=== PATIENT | female | born 1945 | race Caucasian/White ===

== ENCOUNTER 2016-10-05 16:09 | Emergency (ER) | payer MEDICARE ==
[2016-10-05 16:56] LABS: Anisocytosis Moderate; Basophils # (A) 0.1 k/uL (0-0.2); Basophils % (A) 1 %; Eosinophils % (A) 1 %; HCT 22.5 % (34.0-46.0); HGB 7.2 gm/dL (11.4-16.0); Luc # (Auto) 0.07; Luc % (Auto) 2; Lymphocytes # (A) 0.7 k/uL (1.0-4.8); Lymphocytes % (A) 21 %; MCH 27.2 pg (25.0-35.0); MCHC 32.1 g/dL (31.0-37.0); MCV 84.9 fL (80.0-100.0); Macrocytosis Slight; Mean Platelet Volume 9.4; Microcytosis Slight; Monocytes # (A) 0.1 k/uL (0-1.0); Monocytes % (A) 2 %; Neutrophils # (A) 2.5 k/uL (1.3-7.7); Neutrophils % (A) 73 %; RBC 2.65 m/uL (3.80-5.40); RDW 23.8 % (11.5-15.5); WBC 3.4 k/uL (3.8-10.6); WBC (Perox) 3.25
[2016-10-05 17:10] LABS: ALT 29 U/L (9-52); AST 27 U/L (14-36); Alkaline Phosphatase 119 U/L (38-126); Anion Gap 16 mmol/L; Blood Urea Nitrogen 26 mg/dL (7-17); Calcium 9.4 mg/dL (8.4-10.2); Carbon Dioxide 17 mmol/L (22-30); Chloride 107 mmol/L (98-107); Glucose 119 mg/dL (74-99); Magnesium 1.7 mg/dL (1.6-2.3); Non-African American GFR(MDRD) >60 (>60 ml/min/1.73 sqM); Potassium 4.3 mmol/L (3.5-5.1); Sodium 140 mmol/L (137-145); Total Bilirubin 0.5 mg/dL (0.2-1.3); Total Protein 7.6 g/dL (6.3-8.2)
[2016-10-05 17:18] LABS: Creatine Kinase 52 U/L (30-135)
--- NOTE | 2016-10-05 17:19 | ED ---
Chest Pain HPI - General Chief Complaint: Chest Pain Stated Complaint: blood transfusion Time Seen by Provider: 10/05/16 16:32 Source: patient, RN notes reviewed Mode of arrival: wheelchair Limitations: no limitations - History of Present Illness Initial Comments: This is a 71-year-old female history of breast cancer and anemia who was sent over here from her oncologist office due to a low hemoglobin was found on lab work today when she was supposed to start her next round of chemotherapy last chemotherapy was about 6 days ago. She also complains some anterior chest pain that sharp. Denies any fevers chills sweats cough or other symptoms. She denies any lightheadedness or dizziness. MD Complaint: chest pain, other - Related Data Home Medications Medication Instructions Recorded Confirmed Albuterol Sulfate [Proair Hfa] 1 - 2 puff INHALATION RT-Q6H PRN 05/25/16 Gemfibrozil [Lopid] 600 mg PO AC-BID 05/25/16 10/05/16 Hydrocodone/Acetaminophen [[place] 1 tab PO Q6HR PRN 05/25/16 10/05/16 7.5-325] Levothyroxine Sodium [Synthroid] 112 mcg PO DAILY 05/25/16 10/05/16 Omeprazole 20 mg PO DAILY 05/25/16 10/05/16 Vit A,C & E/Lutein/Minerals 1 tab PO BID 06/28/16 10/05/16 [Ocuvite with Lutein Tablet] Cholecalciferol [Vitamin D3] 5,000 unit PO DAILY 10/05/16 10/05/16 Ipratropium-Albuterol Nebulize 3 ml INHALATION RT-QID PRN 10/05/16 10/05/16 [Duoneb 0.5 mg-3 mg/3 ml Soln] Previous Rx's Medication Instructions Recorded Metoprolol Tartrate [Lopressor] 25 mg PO BID #60 tab 07/10/16 Allergies Allergy/AdvReac Type Severity Reaction Status Date / Time aspirin Allergy Rash/Hives Verified 10/05/16 17:02 Review of Systems ROS Statement: Those systems with pertinent positive or pertinent negative responses have been documented in the HPI. ROS Other: All systems not noted in ROS Statement are negative. EKG Findings - EKG Results: EKG: interpreted by CHRIS, WNL, sinus rhythm, normal axis, normal QRS, normal ST/ T, no acute changes (EKG shows normal sinus rhythm of 94. Ago 148 QRS duration 74 daily since QTC of 360/450 qt wave changes.) Past Medical History Past Medical History: Cancer, Eye Disorder, GERD/Reflux, GI Bleed, Hyperlipidemia, Osteoarthritis (OA), Respiratory Disorder, Thyroid Disorder Additional Past Medical History / Comment(s): CA LT BREAST 1997. EXC THYROID 2005. SHORTNESS OF BREATH AND COUGH SINCE 04/30/16. History of Any Multi-Drug Resistant Organisms: None Reported Past Surgical History: Breast Surgery Additional Past Surgical History / Comment(s): LEFT MASTECTOMY AND 12 NODES 1997. THYROID REMOVED. BRONCH 05/25/16. Past Anesthesia/Blood Transfusion Reactions: No Reported Reaction Past Psychological History: No Psychological Hx Reported Smoking Status: Former smoker Past Alcohol Use History: Rare Additional Past Alcohol Use History / Comment(s): SMOKED 30 YEARS, 1 PPD OR LESS , QUIT 2007 Past Drug Use History: None Reported - Past Family History Brother(s) Family Medical History: Cancer Additional Family Medical History / Comment(s): EXPOSURE TO AGENT ORANGE. Mother Family Medical History: Congestive Heart Failure (CHF) Additional Family Medical History / Comment(s): unknown cause at 52 General Exam - General Exam Comments Initial Comments: This a well-developed well-nourished awake alert oriented 3 female Limitations: no limitations General appearance: alert, in no apparent distress Head exam: Present: atraumatic, normocephalic, normal inspection Eye exam: Present: PERRL, EOMI, other (Pale conjunctiva) Pupils: Present: normal accommodation ENT exam: Present: normal exam, mucous membranes moist Neck exam: Present: normal inspection. Absent: tenderness, meningismus, lymphadenopathy Respiratory exam: Present: chest wall tenderness, decreased breath sounds Cardiovascular Exam: Present: regular rate, normal rhythm, normal heart sounds. Absent: systolic murmur, diastolic murmur, rubs, gallop, clicks GI/Abdominal exam: Present: soft, normal bowel sounds. Absent: distended, tenderness, guarding, rebound, rigid Extremities exam: Present: normal inspection, full ROM, normal capillary refill. Absent: tenderness, pedal edema, joint swelling, calf tenderness Back exam: Present: normal inspection Neurological exam: Present: alert, oriented X3, CN II-XII intact Psychiatric exam: Present: normal affect, normal mood Skin exam: Present: warm, dry, intact, pallor. Absent: rash Course Vital Signs 10/05/16 10/05/16 10/05/16 16:19 17:43 18:21 Temperature 98.0 F 98.0 F Pulse Rate 94 93 99 Respiratory 20 18 18 Rate Blood Pressure 132/75 137/63 129/91 O2 Sat by Pulse 100 100 100 Oximetry 10/05/16 10/05/16 10/05/16 18:28 18:38 19:08 Temperature 97.8 F 98.1 F 97.3 F L Pulse Rate 98 96 102 H Respiratory 18 18 18 Rate Blood Pressure 133/93 135/62 140/63 O2 Sat by Pulse 99 100 Oximetry Chest Pain MDM - MDM The patient did receive 1 unit of packed red blood cells he feels good and will be discharged. No complaints at this time. Disposition Clinical Impression: Anemia, Chest wall syndrome Disposition: HOME SELF-CARE Condition: Good Instructions: Costochondritis (ED), Anemia (ED)
[2016-10-05 17:31] LABS: Creatine Kinase MB 1.1 ng/mL (0.0-2.4); Troponin I <0.012 ng/mL (0.000-0.034)
[2016-10-05 17:55] VITALS: RESP 18
[2016-10-05 21:00] VITALS: BP 149/69; PULSE 96; TEMP 97.4
== END 2016-10-05 21:06 | disposition home or self-care (01) ==
LOC: EC 16:09
DX: D64.9 Anemia, unspecified (principal); R07.1 Chest pain on breathing; C50.919 Malignant neoplasm of unspecified site of unspecified female breast; E78.5 Hyperlipidemia, unspecified; Z79.899 Other long term (current) drug therapy; E07.9 Disorder of thyroid, unspecified; K21.9 Gastro-esophageal reflux disease without esophagitis; Z88.6 Allergy status to analgesic agent; Z87.891 Personal history of nicotine dependence
CPT/HCPCS: 36415; 93005; 86900; 86901; 80053; 82550; 82553; 83735; 84484; 85025; 86850; 86920; 99285; P9016; 36430

== ENCOUNTER → 2016-11-29 | Outpatient (CLI) | payer MEDICARE ==
[2016-11-29 12:48] LABS: Blood Urea Nitrogen 33 mg/dL (7-17); Non-African American GFR(MDRD) 53 (>60 ml/min/1.73 sqM)
--- NOTE | 2016-11-29 14:42 | CT ---
EXAMINATION TYPE: CT chest w con DATE OF EXAM: 11/29/2016 2:13 PM COMPARISON: Chest CT April 30, 2016. Chest x-rays from July 2016. HISTORY: Left-sided lung cancer progress study CT DLP: 255.90 mGycm. Automated Exposure Control for Dose Reduction was Utilized. TECHNIQUE: CT scan of the thorax is performed following with IV Contrast, patient injected with 100 ml mL of Omnipaque 300. FINDINGS: LUNGS: There is interval partial pneumonectomy in left lung from prior CT. There is a small left basi lar pneumothorax estimated approximately 20%. There is small to tiny left pleural fluid component. Up rgical clips left hilar level are present. There is new mediastinal shift to the left consistent with interval partial pneumonectomy. Residual lungs show mild to moderate emphysematous change. There is moderate right apical scarring redemonstrated. No new concerning parenchymal nodule or mass is presen t. Tracheobronchial tree is patent. MEDIASTINUM: There are no greater than 1 cm new hilar or mediastinal lymph nodes. No cardiomegaly o r pericardial effusion is seen. Coronary artery calcification is present. OTHER: Underlying S-shaped scoliosis is present. Left-sided mastectomy changes are redemonstrated. Vi sualized spleen remains prominent similar to prior. IMPRESSION: 1. Interval successful surgical resection of left lung mass. No suspicious new nodule or adenopathy i s seen to suggest neoplastic recurrence. 2. There is small to moderate size left basilar hydropneumothorax, after surgery patient had pneumoth orax with chest tube placement. No prior studies after July 10 are available to assess if there i s interval change. Interval resolution of subcutaneous emphysema noted. 3. Background mild to moderate emphysematous change of lungs without acute infiltrate. Results communicated to ordering physician office physician nurses medical assistants phlebotomists via telephone at time of dictat ion. A Document Only message has been documented for Kendall Pedroza MD in the [employer] Critical Result system on 11/29/2016 2:39 PM, Message ID [id number].
== END | disposition home or self-care (01) ==
LOC: RADCTMAIN 12:08
PROVIDERS: ATTEND Internal Medicine Sleep Medicine
DX: T79.7XXA Traumatic subcutaneous emphysema, initial encounter (principal); J93.83 Other pneumothorax; C34.90 Malignant neoplasm of unspecified part of unspecified bronchus or lung; Z98.890 Other specified postprocedural states
CPT/HCPCS: 82565; 84520; 71260; 36415; Q9967

== ENCOUNTER → 2017-03-18 | Outpatient (CLI) | payer MEDICARE ==
[2017-03-18 10:27] LABS: Blood Urea Nitrogen 21 mg/dL (7-17); Non-African American GFR(MDRD) >60 (>60 ml/min/1.73 sqM)
--- NOTE | 2017-03-18 11:21 | CT ---
EXAMINATION TYPE: CT chest w con DATE OF EXAM: 03/18/2017 COMPARISON: 11/29/2016 HISTORY: Lung CA CT DLP: 502 mGycm, Automated exposure control for dose reduction was used. CONTRAST: Performed injected with 100 mL of Omnipaque 300. TECHNIQUE: Axial images were obtained at 5 mm thick sections. Reconstructed images are reviewed on [employer] computer in the coronal plane. FINDINGS: Limited Portion of the thyroid visualized is normal. Left mastectomy is performed. Prosthes is is present. There is a chronic left basilar pneumothorax present and stable from comparison. No suspicious lung n odules or focal infiltrates are present. Some scarring or suture may be along the medial left lower l obe. No enlarged mediastinal or hilar adenopathy is evident. The ascending aorta diameter at the level o f the main pulmonary artery is 2.6 cm. The main pulmonary artery diameter at the bifurcation is 2.[address] sections are obtained through the upper abdomen. Abdomen is essentially unremarkable. IMPRESSIONS: 1. Stable loculated left basilar pneumothorax. 2. No suspicious recurrent masses identified.
== END ==
LOC: RADCTMAIN 09:23
PROVIDERS: ATTEND Internal Medicine Hematology & Oncology
DX: C34.12 Malignant neoplasm of upper lobe, left bronchus or lung (principal); J93.9 Pneumothorax, unspecified
CPT/HCPCS: 82565; 84520; 71260; 36415; Q9967

== ENCOUNTER → 2017-09-12 | Outpatient (CLI) | payer MEDICARE ==
[2017-09-12 10:24] LABS: Blood Urea Nitrogen 27 mg/dL (7-17)
--- NOTE | 2017-09-12 14:49 | CT ---
EXAMINATION TYPE: CT chest w con DATE OF EXAM: 09/12/2017 COMPARISON: 03/18/2017 HISTORY: Patient has no complaints at time of study. Follow up study for known lung CA. CT DLP: 204.4 mGycm, Automated exposure control for dose reduction was used. CONTRAST: Performed injected with 100 mL of Omnipaque 300. TECHNIQUE: Axial images were obtained at 5 mm thick sections. Reconstructed images are reviewed on [employer] computer in the coronal plane. FINDINGS: Portion of the thyroid visualized is normal. No suspicious lung nodules or focal infiltrates are present. Some minimal left pleural effusion is pr esent. Left lobectomy has been performed. There is shift of the mediastinum to the left. Scoliosis is present. No enlarged mediastinal or hilar adenopathy is evident. The ascending aorta diameter at the level o f the main pulmonary artery is 2.8 cm. The main pulmonary artery diameter at the bifurcation is 2.[address] sections are obtained through the upper abdomen. Abdomen is essentially unremarkable. IMPRESSIONS: 1. Stable postsurgical left chest. Previous pneumothorax has resolved. Minimal fluid remains present.
== END | disposition home or self-care (01) ==
LOC: RADCTMAIN 09:44
PROVIDERS: ATTEND Internal Medicine Hematology & Oncology
DX: C34.12 Malignant neoplasm of upper lobe, left bronchus or lung (principal); C50.919 Malignant neoplasm of unspecified site of unspecified female breast; J90 Pleural effusion, not elsewhere classified; Z88.6 Allergy status to analgesic agent; Z98.890 Other specified postprocedural states
CPT/HCPCS: 82565; 84520; 71260; 36415; Q9967

== ENCOUNTER → 2018-03-13 | Outpatient (CLI) | payer MEDICARE ==
--- NOTE | 2018-03-13 16:09 | CT ---
EXAMINATION TYPE: CT chest w con DATE OF EXAM: 03/13/2018 COMPARISON: 09/12/2017 HISTORY: Follow up Lung cancer per patient. Also history of breast cancer. CT DLP: 402 mGycm Automated exposure control for dose reduction was used. CONTRAST: CT scan of the chest is performed with IV Contrast, patient injected with 100 mL of Isovue 300. FINDINGS: LUNGS: Partial pulmonary lobectomy change of the left lung is stable. Pleural-based granulomas left u pper lobe. Persistent left lower lobe pleural thickening. No significant change seen. No evidence for local recurrence or metastatic disease within the [id number]. Hyperinflation compatible with COPD . Upper lobe emphysematous change mild in degree. MEDIASTINUM: There are no greater than 1 cm hilar or mediastinal lymph nodes. No pericardial effusi on is seen. Thoracic aorta is of normal caliber. The heart is not enlarged. UPPER ABDOMEN: No significant abnormality appreciated. OTHER: Left-sided mastectomy changes present. Left renal cyst noted. IMPRESSION: 1. Stable postsurgical left chest. No evidence for local recurrence or metastatic disease.
== END | disposition home or self-care (01) ==
LOC: RADCTMAIN 08:11
PROVIDERS: ATTEND Internal Medicine Hematology & Oncology
DX: C34.12 Malignant neoplasm of upper lobe, left bronchus or lung (principal); Z98.890 Other specified postprocedural states; Z88.6 Allergy status to analgesic agent
CPT/HCPCS: 82565; 84520; 71260; 36415; Q9967

== ENCOUNTER → 2018-07-19 | Outpatient (CLI) | payer MEDICARE ==
--- NOTE | 2018-08-03 13:16 | MM ---
Reason for exam: additional evaluation requested from prior study. Last mammogram was performed 1 year ago. History: Patient is postmenopausal, has history of other cancer at age 71, and has history of breast cancer at age 53. Family history of breast cancer in 2 maternal aunts and breast cancer in 2 maternal cousins. Benign right mammotome panel of the right breast, June 04, 2011. Malignant excisional biopsy of the left breast, May 01, 1998. Mastectomy of the left breast, 1997. Cyst aspiration of the left breast. Chemotherapy. Took hormonal contraceptives for 2 years beginning at age 20. Physical Findings: Nurse did not find any significant physical abnormalities on exam. MG 3D Diag Mammo W/Cad RT CC and MLO view(s) were taken of the right breast. Prior study comparison: July 07, 2017, right breast MG 3d diag mammo w/cad RT. May 26, 2015, right breast MG 3d diag mammo w/cad RT. The breast tissue is heterogeneously dense. This may lower the sensitivity of mammography. There are benign appearing round calcifications in the right breast. Previous mammotome biopsy in the right breast. There is no discrete abnormality. These results were verbally communicated with the patient and result sheet given to the patient on 07/19/18. ASSESSMENT: Benign, BI-RAD 2 RECOMMENDATION: Follow-up diagnostic mammogram of the right breast in 1 year.
== END | disposition home or self-care (01) ==
LOC: RADMAMWWP 09:59
PROVIDERS: ATTEND Family Medicine
DX: Z08 Encounter for follow-up examination after completed treatment for malignant neoplasm (principal); Z85.3 Personal history of malignant neoplasm of breast; Z90.12 Acquired absence of left breast and nipple
CPT/HCPCS: 77065; G0279; 77061

== ENCOUNTER → 2018-10-02 | Outpatient (CLI) | payer MEDICARE ==
[2018-10-02 11:27] LABS: Blood Urea Nitrogen 24 mg/dL (7-17)
--- NOTE | 2018-10-02 12:26 | CT ---
EXAMINATION TYPE: CT chest w con DATE OF EXAM: 10/02/2018 COMPARISON: Prior chest x-ray 03/13/2018 HISTORY: Lung cancer CT DLP: 240.3 mGycm Automated exposure control for dose reduction was used. CONTRAST: CT scan of the chest is performed with IV Contrast, patient injected with 100 mL of Isovue 300. FINDINGS: LUNGS: Line loss in the left hemithorax is again noted, there is pleural thickening as on prior exam. Emphysematous changes are present within the lungs. There is no pleural effusion or pneumothorax see n. The tracheobronchial tree is patent. MEDIASTINUM: There are no greater than 1 cm hilar or mediastinal lymph nodes. No pericardial effusi on is seen. AORTA: No additional significant abnormality is seen. OTHER: Cortical cysts associated with the anterior aspect of the left kidney measures 2.8 cm. There is a hiatal hernia as on prior. There is a spinal curvature present. IMPRESSION: Posttreatment changes. Additional findings above.
== END ==
LOC: RADCTMAIN 10:58
PROVIDERS: ATTEND Internal Medicine Hematology & Oncology
DX: C50.919 Malignant neoplasm of unspecified site of unspecified female breast (principal); C34.12 Malignant neoplasm of upper lobe, left bronchus or lung; Z98.890 Other specified postprocedural states; Z88.6 Allergy status to analgesic agent
CPT/HCPCS: 82565; 84520; 71260; 36415; Q9967

== ENCOUNTER → 2019-04-03 | Outpatient (CLI) | payer MEDICARE ==
--- NOTE | 2019-04-03 14:25 | CT ---
EXAMINATION TYPE: CT chest w con DATE OF EXAM: 04/03/2019 COMPARISON: 10/02/2018 an 03/13/2018 HISTORY: 74 year-old female follow-up Lung CA TECHNIQUE: Contiguous axial scanning of the chest after the administration of 100 mL of Isovue 300. Coronal/sagittal reconstructions performed. CT DLP: 229.2mGycm. Automatic exposure control utilized for a dose reduction. FINDINGS: Heart normal size without pericardial effusion. Aorta normal caliber with conventional branching anatomy. Mild atherosclerotic arch calcifications. No thoracic lymphadenopathy by CT size criteria. Prior left mastectomy. Volume loss within left hemithorax with prior left-sided lobectomy. Surgical material along the poste romedial aspect of the mid to lower left lung with stable adjacent pleural thickening. Some strandy s carring or atelectasis at the left base. Underlying mild centrilobular emphysema upper and mid lungs. No consolidation or pleural effusion. Small hiatal hernia. Stable left renal cyst measuring 2.7 cm. Bones: Dextroconvex curvature of the thoracic spine with moderate degenerative disc disease midthorac ic spine. No osseous destructive process. IMPRESSION: 1. COPD with mild emphysema. 2. Status post left lobectomy with postsurgical volume loss. 3. No suspicious nodule or lymphadenopathy to suggest metastatic disease.
== END | disposition home or self-care (01) ==
LOC: RADCTMAIN 09:15
PROVIDERS: ATTEND Internal Medicine Hematology & Oncology
DX: J44.9 Chronic obstructive pulmonary disease, unspecified (principal); C34.12 Malignant neoplasm of upper lobe, left bronchus or lung; C50.919 Malignant neoplasm of unspecified site of unspecified female breast; Z90.2 Acquired absence of lung [part of]
CPT/HCPCS: 36415; 71260; 82565; 84520

== ENCOUNTER → 2019-08-13 | Outpatient (CLI) | payer MEDICARE ==
--- NOTE | 2019-08-13 10:01 | MM ---
Reason for exam: additional evaluation requested from prior study. Last mammogram was performed 1 year and 1 month ago. History: Patient is postmenopausal, has history of other cancer at age 71, and has history of breast cancer at age 53. Family history of breast cancer in 2 maternal aunts and breast cancer in 2 maternal cousins. Benign right mammotome panel of the right breast, June 04, 2011. Malignant excisional biopsy of the left breast, May 01, 1998. Mastectomy of the left breast, 1997. Cyst aspiration of the left breast. Chemotherapy. Took hormonal contraceptives for 2 years beginning at age 20. Physical Findings: Nurse did not find any significant physical abnormalities on exam. MG 3D Diag Mammo W/Cad RT CC and MLO view(s) were taken of the right breast. Prior study comparison: July 19, 2018, right breast MG 3d diag mammo w/cad RT. July 07, 2017, right breast MG 3d diag mammo w/cad RT. The breast tissue is heterogeneously dense. This may lower the sensitivity of mammography. No suspicious abnormality. Right biopsy marker noted. These results were verbally communicated with the patient and result sheet given to the patient on 08/13/19. ASSESSMENT: Negative, BI-RAD 1 RECOMMENDATION: Routine screening mammogram of the right breast in 1 year.
== END | disposition home or self-care (01) ==
LOC: RADMAMWWP 08:55
PROVIDERS: ATTEND Internal Medicine Geriatric Medicine
DX: Z08 Encounter for follow-up examination after completed treatment for malignant neoplasm (principal); Z85.3 Personal history of malignant neoplasm of breast
CPT/HCPCS: 77065; G0279; 77061

== ENCOUNTER → 2019-10-08 | Outpatient (CLI) | payer MEDICARE ==
[2019-10-08 10:18] LABS: African American GFR (CKD) >90 (>60 ml/min/1.73 sqM); Blood Urea Nitrogen 18 mg/dL (7-17); Non-African American GFR(CKD) 89 (>60 ml/min/1.73 sqM)
--- NOTE | 2019-10-08 11:18 | CT ---
EXAMINATION TYPE: CT chest w con DATE OF EXAM: 10/08/2019 COMPARISON: 04/03/2019, 03/13/2018, 03/18/2017 HISTORY: 74-year-old female follow up lung cancer TECHNIQUE: Contiguous axial scanning of the chest after the administration of 100 mL of Isovue 300. Coronal/sagittal reconstructions performed. CT DLP: 235.1mGycm. Automatic exposure control utilized for a dose reduction. FINDINGS: Heart normal size without pericardial effusion. Aorta normal caliber with mild atherosclerotic arterial calcifications in the chart. Branching anatom y. Redemonstrated shift of the heart and mediastinum toward the left secondary to volume loss in the lef t hemithorax from prior left lobectomy. Surgical material along the posteromedial right upper lung. Biapical pleural parenchymal scarring. Scattered mild to moderate emphysematous change. No thoracic lymphadenopathy. Chronic pleural-based thickening posterior left mid and lower lung. No new consolidation or pleural effusion. Small hiatal hernia redemonstrated. Visualized upper abdomen again shows a 2.7 cm anterior left renal cyst. Mild to moderate atherosclerotic calcifications visualized upper abdominal aorta. Bones: Moderate degenerative disc disease midthoracic spine. Dextro convex scoliosis. IMPRESSION: 1. Redemonstrated postsurgical changes of left lobectomy with associated volume loss in the left noris thorax. 2. COPD with mild to moderate emphysema and biapical pleural parenchymal scarring. Chronic pleural th ickening posterior aspect of the left lung. 3. No evidence for recurrent or metastatic disease in the chest. 4. Small hiatal hernia.
== END | disposition home or self-care (01) ==
LOC: RADCTMAIN 09:26
PROVIDERS: ATTEND Internal Medicine Hematology & Oncology
DX: J43.9 Emphysema, unspecified (principal); J98.4 Other disorders of lung; C50.919 Malignant neoplasm of unspecified site of unspecified female breast; C34.12 Malignant neoplasm of upper lobe, left bronchus or lung; Z90.2 Acquired absence of lung [part of]; Z88.8 Allergy status to other drugs, medicaments and biological substances
CPT/HCPCS: 82565; 84520; 71260; 36415; Q9967

== ENCOUNTER → 2020-04-09 | Outpatient (CLI) | payer MEDICARE ==
--- NOTE | 2020-04-09 11:13 | CT ---
EXAMINATION TYPE: CT chest w con DATE OF EXAM: 04/09/2020 COMPARISON: 10/08/2019 HISTORY: Observation for suspected mets, known Lung and Breast CA CT DLP: 360 mGycm Automated exposure control for dose reduction was used. CONTRAST: CT scan of the chest is performed with IV Contrast, patient injected with 100 mL of Isovue 300. FINDINGS: Heart normal size without pericardial effusion. Aorta normal caliber with mild atherosclerotic arterial calcifications in the chart. Branching anatom y. Redemonstrated shift of the heart and mediastinum toward the left secondary to volume loss in the lef t hemithorax from prior left lobectomy. Surgical material along the posteromedial right upper lung. Biapical pleural parenchymal scarring. Scattered mild to moderate emphysematous change. No thoracic l ymphadenopathy. Chronic pleural-based thickening posterior left mid and lower lung. No new consolidat ion or pleural effusion. Coronary artery calcification noted. Small hiatal hernia redemonstrated. Visualized upper abdomen again shows a 2.7 cm anterior left renal cyst. Mild to moderate atherosclerotic calcifications visualized upper abdominal aorta. Bones: Moderate degenerative disc disease midthoracic spine. Dextro convex scoliosis. IMPRESSION: 1. Postsurgical changes with findings compatible COPD and parenchymal scarring. 2. No evidence of mass or pathologic adenopathy.
== END | disposition home or self-care (01) ==
LOC: RADCTMAIN 09:40
PROVIDERS: ATTEND Internal Medicine Hematology & Oncology
DX: J98.4 Other disorders of lung (principal); J44.9 Chronic obstructive pulmonary disease, unspecified; C34.12 Malignant neoplasm of upper lobe, left bronchus or lung; C50.919 Malignant neoplasm of unspecified site of unspecified female breast; Z88.8 Allergy status to other drugs, medicaments and biological substances
CPT/HCPCS: 82565; 84520; 71260; 36415; Q9967

== ENCOUNTER → 2020-10-06 | Outpatient (CLI) | payer MEDICARE ==
[2020-10-06 10:12] LABS: African American GFR (CKD) >90 (>60 ml/min/1.73 sqM); Blood Urea Nitrogen 19 mg/dL (7-17); Non-African American GFR(CKD) 80 (>60 ml/min/1.73 sqM)
--- NOTE | 2020-10-06 10:59 | CT ---
EXAMINATION TYPE: CT chest w con DATE OF EXAM: 10/06/2020 COMPARISON: Chest CT April 09, 2020 and older studies. HISTORY: Lung and breast cancer. CT DLP: 247.80 mGycm. Automated Exposure Control for Dose Reduction was Utilized. TECHNIQUE: CT scan of the thorax is performed following with IV Contrast, patient injected with 100 mL of Isovue 300. FINDINGS: LUNGS: Moderate underlying emphysematous change redemonstrated. Left-sided volume loss from partial p neumonectomy redemonstrated. Mild left greater than right bibasilar linear scarring remains present. No new nodules or masses. No pleural effusion or pneumothorax seen currently. MEDIASTINUM: There are no new greater than 1 cm hilar or mediastinal lymph nodes. No cardiomegaly o r pericardial effusion is seen. Thyroid gland not well seen may be congenitally absent or hypoplasti c. Coronary artery calcification redemonstrated. OTHER: There is 2.0 cm thin-walled cyst anteriorly mid pole level left kidney. Underlying dextroconve x scoliosis redemonstrated. Left breast remains surgically absent. Stable prominent but subcentimeter low left axillary lymph node on image 12. No new axillary adenopathy. IMPRESSION: Overall stable findings. Underlying emphysematous change. Posttreatment change to left karissa ng and breast redemonstrated. No new mass or adenopathy noted.
== END | disposition home or self-care (01) ==
LOC: RADCTMAIN 09:39
PROVIDERS: ATTEND Internal Medicine Hematology & Oncology
DX: J43.9 Emphysema, unspecified (principal); C50.919 Malignant neoplasm of unspecified site of unspecified female breast; C34.12 Malignant neoplasm of upper lobe, left bronchus or lung; Z88.6 Allergy status to analgesic agent; Z98.890 Other specified postprocedural states
CPT/HCPCS: 82565; 84520; 71260; 36415; Q9967

== ENCOUNTER 2021-04-07 17:23 | Emergency (ER) | payer MEDICARE ==
[2021-04-07 17:44] VITALS: TEMP 98.3
[2021-04-07] MEDS ORDERED: IBUPROFEN 600 MG TAB PO STA (18:31)
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
--- NOTE | 2021-04-07 19:14 | XR ---
Result: History: Pain. Comparison: None available. Technique: 3 views of the left knee. Findings: There is mild depression of the lateral tibial plateau. There is moderate to large lipohemarthrosis.. No evidence of dislocation. Impression: Findings concerning for lateral tibial plateau fracture.
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
[2021-04-07 20:59] LABS: Basophils % (A) 0 %; Eosinophils # (A) 0.2 k/uL (0-0.7); Eosinophils % (A) 2 %; HCT 35.4 % (34.0-46.0); HGB 12.3 gm/dL (11.4-16.0); Lymphocytes % (A) 9 %; MCH 32.8 pg (25.0-35.0); MCHC 34.6 g/dL (31.0-37.0); MCV 94.8 fL (80.0-100.0); Mean Platelet Volume 7.5; Monocytes # (A) 0.5 k/uL (0-1.0); Monocytes % (A) 4 %; Neutrophils # (A) 9.1 k/uL (1.3-7.7); Neutrophils % (A) 84 %; Platelet Count 237 k/uL (150-450); RBC 3.74 m/uL (3.80-5.40); RDW 13.1 % (11.5-15.5); WBC 10.9 k/uL (3.8-10.6)
[2021-04-07 21:09] LABS: INR 1.1 (<1.2); Partial Thromboplastin Time 23.1 sec (22.0-30.0); Prothrombin Time 11.2 sec (9.0-12.0)
[2021-04-07 21:14] LABS: ALT 19 U/L (4-34); AST 27 U/L (14-36); African American GFR (CKD) >90 (>60 ml/min/1.73 sqM); Albumin 4.6 g/dL (3.5-5.0); Alkaline Phosphatase 103 U/L (38-126); Anion Gap 12 mmol/L; Blood Urea Nitrogen 19 mg/dL (7-17); Calcium 9.4 mg/dL (8.4-10.2); Carbon Dioxide 22 mmol/L (22-30); Chloride 105 mmol/L (98-107); Glucose 126 mg/dL (74-99); Non-African American GFR(CKD) 82 (>60 ml/min/1.73 sqM); Potassium 4.3 mmol/L (3.5-5.1); Sodium 139 mmol/L (137-145); Total Bilirubin 0.2 mg/dL (0.2-1.3); Total Protein 7.2 g/dL (6.3-8.2)
[2021-04-07] MEDS ORDERED: HYDROmorphone 0.5 MG/0.5 ML SYRINGE IVP STA (21:20)
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
[2021-04-07 22:23] VITALS: BP 124/66; PULSE 81; RESP 16
== END 2021-04-07 22:35 | disposition other institution (70) ==
LOC: EC 17:23
DX: S82.142A Displaced bicondylar fracture of left tibia, initial encounter for closed fracture (principal); K21.9 Gastro-esophageal reflux disease without esophagitis; E78.5 Hyperlipidemia, unspecified; M19.90 Unspecified osteoarthritis, unspecified site; E07.9 Disorder of thyroid, unspecified; Z88.8 Allergy status to other drugs, medicaments and biological substances; Z87.891 Personal history of nicotine dependence; V43.52XA Car driver injured in collision with other type car in traffic accident, initial encounter; Y92.410 Unspecified street and highway as the place of occurrence of the external cause
CPT/HCPCS: 99285; 96374; 36415; 86900; 86901; 80053; 85025; 85610; 85730; 86850; 72170; 73562; 73700; J1170

== ENCOUNTER → 2021-04-07 | Outpatient (CLI) | payer MEDICARE ==
--- NOTE | 2021-04-07 10:14 | CT ---
EXAMINATION TYPE: CT chest w con DATE OF EXAM: 04/07/2021 COMPARISON: Chest CT October 06, 2020 and older CTs HISTORY: Left-sided lung and breast cancer progress study. CT DLP: 497 mGycm. Automated Exposure Control for Dose Reduction was Utilized. TECHNIQUE: CT scan of the thorax is performed following with IV Contrast, patient injected with 80 m L of Isovue 300. FINDINGS: LUNGS: Moderate underlying emphysematous change is redemonstrated. Left-sided volume loss from partia l pneumonectomy redemonstrated. Mild left greater than right bibasilar linear scarring remains presen t. No new nodules or masses bilaterally. No pleural effusion or pneumothorax seen currently. MEDIASTINUM: There are no new greater than 1 cm hilar or mediastinal lymph nodes. No cardiomegaly o r pericardial effusion is seen. Thyroid gland once again not well seen may be congenitally absent or hypoplastic. Coronary artery calcification redemonstrated. OTHER: There is 2.0 cm thin-walled cyst anteriorly mid pole level left kidney redemonstrated. Underly ing dextroconvex scoliosis centered mid to lower thoracic spine redemonstrated. Left breast remains s urgically absent. Stable prominent but subcentimeter low left axillary lymph node on axial image 11. No new axillary adenopathy. IMPRESSION: Overall stable findings. Underlying emphysematous change. Posttreatment change to left karissa ng and breast redemonstrated. No new or enlarging mass or adenopathy noted.
== END | disposition home or self-care (01) ==
LOC: RADCTMAIN 08:44
PROVIDERS: ATTEND Internal Medicine Hematology & Oncology
DX: J43.9 Emphysema, unspecified (principal); Z85.3 Personal history of malignant neoplasm of breast; Z85.118 Personal history of other malignant neoplasm of bronchus and lung
CPT/HCPCS: 82565; 84520; 71260; 36415; Q9967

== ENCOUNTER → 2022-11-25 | Outpatient (CLI) | payer MEDICARE ==
--- NOTE | 2022-11-26 07:19 | MM ---
Reason for Exam: Screening (asymptomatic). Last mammogram was performed 3 year(s) and 3 month(s) ago. Patient History: Menarche at age 11. First Full-Term at age 23. Postmenopausal. Breast cancer, left, age 53. Previous chemotherapy at age 53. Hormonal Contraceptives for 2 years from age 20 until age 22. 1997, Mastectomy on the Left side. Cyst Aspiration on the Left side. 06/04/2011, Benign Core Biopsy on the right side. 05/01/1998, Malignant Excisional Biopsy on the left side. Chemotherapy. Maternal cousin had breast cancer. Maternal cousin had breast cancer. Maternal aunt had breast cancer. Maternal aunt had breast cancer. Prior Study Comparison: 07/07/2017 Right Diagnostic Mammogram, [facility]. 07/19/2018 Right Diagnostic Mammogram, [facility]. 08/13/2019 Right Diagnostic Mammogram, [facility]. Tissue Density: Right: The breast tissue is heterogeneously dense. This may lower the sensitivity of mammography. Findings: Analyzed By CAD. Biopsy clip right breast redemonstrated. There are a few scattered and grouped tiny benign-appearing round calcifications throughout the right breast redemonstrated. Benign-appearing right axillary lymph nodes are redemonstrated. There is no suspicious group of microcalcifications or new suspicious mass in the right breast. Overall Assessment: Benign, BI-RAD 2 Management: Screening Mammogram of the right breast in 1 year. . Patient should continue monthly self-breast exams. A clinical breast exam by your physician is recommended on an annual basis. This exam should not preclude additional follow-up of suspicious palpable abnormalities. Note on Taylor scores and lifetime risk: 1. A Taylor score greater than 3% is considered moderate risk. If this is the case, consider specialist referral to assess eligibility for a risk reducing agent. 2. If overall lifetime risk for the development of breast cancer is 20% or higher, the patient may qualify for future screening with alternating mammogram and breast MRI. Electronically signed and approved by: Xavier Escobedo M.D.
== END | disposition home or self-care (01) ==
LOC: RADMAMWWP 09:44
PROVIDERS: ATTEND Family Medicine
DX: Z12.31 Encounter for screening mammogram for malignant neoplasm of breast (principal); Z78.0 Asymptomatic menopausal state; Z80.3 Family history of malignant neoplasm of breast; Z90.12 Acquired absence of left breast and nipple; Z85.3 Personal history of malignant neoplasm of breast; Z98.890 Other specified postprocedural states
CPT/HCPCS: 77067

== ENCOUNTER → 2023-11-28 | Outpatient (CLI) | payer MEDICARE ==
--- NOTE | 2023-11-30 08:36 | MM ---
Reason for Exam: Screening (asymptomatic). Last screening mammogram was performed 12 month(s) ago. Patient History: Menarche at age 11. First Full-Term at age 23. Postmenopausal. Breast cancer, left, age 53. Previous chemotherapy at age 53. Hormonal Contraceptives for 2 years from age 20 until age 22. 1997, Mastectomy on the Left side. Cyst Aspiration on the Left side. 06/04/2011, Benign Core Biopsy on the right side. 05/01/1998, Malignant Excisional Biopsy on the left side. Chemotherapy. Maternal cousin had breast cancer. Maternal cousin had breast cancer. Maternal aunt had breast cancer. Maternal aunt had breast cancer. Prior Study Comparison: 07/19/2018 Right Diagnostic Mammogram, [facility]. 08/13/2019 Right Diagnostic Mammogram, [facility]. 11/25/2022 Right MG 3D scr xavier unilateral w/cad., [facility]. Tissue Density: Right: The breasts are heterogeneously dense, which may obscure small masses. Findings: Previous biopsy marker noted. Benign calcifications. Overall Assessment: Benign, BI-RAD 2 Management: Screening Mammogram of the right breast in 1 year. . Results were given to the patient verbally at the time of exam. Patient should continue monthly self-breast exams. A clinical breast exam by your physician is recommended on an annual basis. This exam should not preclude additional follow-up of suspicious palpable abnormalities. Note on Taylor scores and lifetime risk: 1. A Taylor score greater than 3% is considered moderate risk. If this is the case, consider specialist referral to assess eligibility for a risk reducing agent. 2. If overall lifetime risk for the development of breast cancer is 20% or higher, the patient may qualify for future screening with alternating mammogram and breast MRI. Electronically signed and approved by: Tommy Carbajal M.D. Radiologis
== END | disposition home or self-care (01) ==
LOC: RADMAMWWP 10:27
PROVIDERS: ATTEND Family Medicine
DX: Z12.31 Encounter for screening mammogram for malignant neoplasm of breast (principal); Z80.3 Family history of malignant neoplasm of breast; Z78.0 Asymptomatic menopausal state; Z90.12 Acquired absence of left breast and nipple
CPT/HCPCS: 77067

== ENCOUNTER 2024-05-18 18:14 | Emergency (ER) | payer MEDICARE ==
--- NOTE | 2024-05-18 19:16 | ED ---
General Adult HPI - General Source: patient, family Mode of arrival: wheelchair <Prudence De Leon - Last Filed: 05/18/24 19:15> - General Source: patient, family, RN notes reviewed <Lorraine Small - Last Filed: 05/18/24 22:38> - General Stated complaint: L hip pain Time Seen by Provider: 05/18/24 19:15 - History of Present Illness Initial comments: 79-year-old female presenting with chief complaint of left hip pain. Patient had a fall a few days ago, she was sitting in a chair when it broke causing her legs to lift upwards (Prudence De Leon) 79-year-old female presenting for left hip pain x 1 day. States 4 days ago she went to sit down in a lawn chair, and the chair collapsed beneath her, and she fell onto her left hip. She did not have immediate pain and has been able to ambulate without difficulties over the past few days. She states today she began to have pain in the left hip radiating down the left leg worse with movement and laying on her left side. Denies loss of bowel or bladder control. Denies saddle anesthesia. (Lorraine Small) - Related Data Home Medications Medication Instructions Recorded Confirmed Albuterol Sulfate [Proair Hfa] 1 - 2 puff INHALATION RT-Q6H PRN 05/25/16 10/15/16 Hydrocodone/Acetaminophen [[place] 1 tab PO Q6HR PRN 05/25/16 10/15/16 7.5-325] Levothyroxine Sodium [Synthroid] 112 mcg PO DAILY 05/25/16 10/15/16 Omeprazole 20 mg PO BID 05/25/16 10/15/16 gemfibroziL [Lopid] 600 mg PO AC-BID 05/25/16 10/15/16 Vits A,C,E/Lutein/Minerals 1 tab PO BID 06/28/16 10/15/16 [Ocuvite with Lutein Tablet] Cholecalciferol [Vitamin D3] 5,000 unit PO DAILY 10/05/16 10/15/16 Ipratropium-Albuterol Nebulize 3 ml INHALATION RT-QID PRN 10/05/16 10/15/16 [Duoneb 0.5 mg-3 mg/3 ml Soln] Previous Rx's Medication Instructions Recorded Metoprolol Tartrate [Lopressor] 25 mg PO BID #60 tab 07/10/16 Lidocaine 5% Patch [Lidoderm 5% 1 patch TOPICAL DAILY 7 Days #7 05/18/24 Patch] patch Allergies Allergy/AdvReac Type Severity Reaction Status Date / Time aspirin Allergy Rash/Hives Verified 05/18/24 19:31 Review of Systems ROS Other: All systems not noted in ROS Statement are negative. <Prudence De Leon - Last Filed: 05/18/24 19:15> ROS Other: All systems not noted in ROS Statement are negative. <Lorraine Small - Last Filed: 05/18/24 22:38> ROS Statement: Those systems with pertinent positive or pertinent negative responses have been documented in the HPI. Past Medical History Past Medical History: Cancer, Eye Disorder, GERD/Reflux, GI Bleed, Hyperlipidemia, Osteoarthritis (OA), Respiratory Disorder, Thyroid Disorder Additional Past Medical History / Comment(s): CA LT BREAST 1997. EXC THYROID 2005. SHORTNESS OF BREATH AND COUGH SINCE 04/30/16. History of Any Multi-Drug Resistant Organisms: None Reported Past Surgical History: Breast Surgery Additional Past Surgical History / Comment(s): LEFT MASTECTOMY AND 12 NODES 1997. THYROID REMOVED. BRONCH 05/25/16. Past Anesthesia/Blood Transfusion Reactions: No Reported Reaction Past Psychological History: No Psychological Hx Reported Smoking Status: Former smoker Past Alcohol Use History: Rare Past Drug Use History: None Reported - Past Family History Brother(s) Family Medical History: Cancer Additional Family Medical History / Comment(s): EXPOSURE TO AGENT ORANGE. Mother Family Medical History: Congestive Heart Failure (CHF) Additional Family Medical History / Comment(s): unknown cause at 52 <Prudence De Leon - Last Filed: 05/18/24 19:15> General Exam <Prudence De Leon - Last Filed: 05/18/24 19:15> General appearance: alert, in no apparent distress Head exam: Present: atraumatic, normocephalic, normal inspection Eye exam: Present: normal appearance, PERRL, EOMI. Absent: scleral icterus, conjunctival injection, periorbital swelling GI/Abdominal exam: Present: soft, normal bowel sounds. Absent: distended, tenderness, guarding, rebound, rigid Left Hip exam: Present: normal inspection, full ROM. Absent: tenderness, swelling Upper Leg exam: Present: normal inspection, full ROM. Absent: tenderness, swelling Knee exam: Present: normal inspection, full ROM. Absent: tenderness, swelling Lower Leg exam: Present: normal inspection, full ROM. Absent: tenderness, swelling Ankle exam: Present: normal inspection, full ROM. Absent: tenderness, swelling Foot/Toe exam: Present: normal inspection, full ROM. Absent: tenderness, swelling Neurovascular tendon exam: Present: no vascular compromise. Absent: pulse deficit, abnormal cap refill, sensory deficit Neurological exam: Present: alert, oriented X3 Psychiatric exam: Present: normal affect, normal mood Skin exam: Present: warm, dry, intact, normal color. Absent: rash <Lorraine Small - Last Filed: 05/18/24 22:38> - General Exam Comments Initial Comments: Visual Physical Exam Vital signs reviewed General: nontoxic, no acute distress. Head: Normocephalic, atraumatic Eyes: PERRLA, EOMI ENT: Airway patent Chest: Nonlabored breathing Skin: No visual rash, normal skin tone Neuro: Alert and oriented 3 Musculoskeletal: Patient is crouched over unable to find a comfortable position (Prudence De Leon) Course Vital Signs 05/18/24 19:29 Temperature 97.9 F Pulse Rate 84 Respiratory 18 Rate Blood Pressure 174/87 O2 Sat by Pulse 96 Oximetry Medical Decision Making <Prudence De Leon - Last Filed: 05/18/24 19:15> <Lorraine Small - Last Filed: 05/18/24 22:38> - Medical Decision Making I performed the quick note portion of this visit, electronically signed Prudence De Leon PA-C (Prudence De Leon) Was pt. sent in by a medical professional or institution ([facility], [facility], urgent ca re, hospital, or shelter...) When possible be specific @ -No Did you speak to anyone other than the patient for history (EMS, parent, family, police, friend...)? What history was obtained from this source @ -No Did you review nursing and triage notes (agree or disagree)? Why? @ -I reviewed and agree with nursing and triage notes Were old charts reviewed (outside hosp., previous admission, EMS record, old EKG, old radiological studies, urgent care reports/EKG's, shelter records)? Report findings @ -No old charts were reviewed Differential Diagnosis (chest pain, altered mental status, abdominal pain women, abdominal pain men, vaginal bleeding, weakness, fever, dyspnea, syncope, headache, dizziness, GI bleed, back pain, seizure, CVA, palpatations, mental health, musculoskeletal)? @ -Differential Musculoskeletal Muscular strain, contusion, ligament sprain, fracture, arthritis, septic arthritis, bursitis, cellulitis, muscle spasm, nerve compression, DVT, arterial occlusion, herpes zoster, electrolyte abnormality, tumor.... This is not meant to be in all inclusive list EKG interpreted by me (3pts min.). @ -As above X-rays interpreted by me (1pt min.). @ -X-ray left hip reveals no acute process CT interpreted by me (1pt min.). @ -CT left hip reveals no acute osseous abnormality U/S interpreted by me (1pt. min.). @ -None done What testing was considered but not performed or refused? (CT, X-rays, U/S, labs)? Why? @ -None What meds were considered but not given or refused? Why? @ -None Did you discuss the management of the patient with other professionals (professionals i.e. , PA, PLATEMAN, lab, RT, psych nurse, social work administrator, reporter, teacher, navy senior officer, onsite case manager)? Give summary @ -No Was smoking cessation discussed for >3mins.? @ -No Was critical care preformed (if so, how long)? @ -No Were there social determinants of health that impacted care today? How? (Homelessness, low income, unemployed, alcoholism, drug addiction, transportation, low edu. Level, literacy, decrease access to med. care, nursing home, rehab)? @ -No Was there de-escalation of care discussed even if they declined (Discuss DNR or withdrawal of care, Hospice)? DNR status @ -No What co-morbidities impacted this encounter? (DM, HTN, Smoking, COPD, CAD, Cancer, CVA, ARF, Chemo, Hep., AIDS, mental health diagnosis, sleep apnea, morbid obesity)? @ -None Was patient admitted / discharged? Hospital course, mention meds given and route, prescriptions, significant lab abnormalities, going to OR and other pertinent info. @ -Discharged. This is a 79-year-old female presenting with left hip pain x 1 day. States she had a mechanical fall onto the left hip 4 days ago. She is able to ambulate. No red flag symptoms. Neurovascularly intact. No erythema, edema, or sign of bacterial infection. She was provided with analgesics. X-ray revealed no acute process. Upon reevaluation, patient continues to have pain therefore CT scan was obtained of left hip which revealed no acute osseous abno rmality. Patient and family were updated on findings. Discussed symptoms are likely musculoskeletal in nature and there does not appear to be any emergent etiology causing symptoms today. Supportive care discussed as well as close follow-up with PCP for further testing if symptoms persist. Return precautions discussed as well and patient and family are agreeable to plan. Case was discussed with my ED attending Dr. Ignacio. Patient discharged in stable condition. Undiagnosed new problem with uncertain prognosis? @ -No Drug Therapy requiring intensive monitoring for toxicity (Heparin, Nitro, Insulin, Cardizem)? @ -No Were any procedures done? @ -No Diagnosis/symptom? @ -Left hip strain Acute, or Chronic, or Acute on Chronic? @ -Acute Uncomplicated (without systemic symptoms) or Complicated (systemic symptoms)? @ -Uncomplicated Side effects of treatment? @ -No Exacerbation, Progression, or Severe Exacerbation? @ -No Poses a threat to life or bodily function? How? (Chest pain, [place], [place], pneumonia, PE, COPD, DKA, ARF, appy, cholecystitis, CVA, Diverticulitis, Homicidal, Suicidal, threat to staff... and all critical care pts) @ -No (Lorraine Small) Disposition <Prudence De Leon - Last Filed: 05/18/24 19:15> Is patient prescribed a controlled substance at d/c from ED?: No Time of Disposition: 22:18 <Lorraine Small - Last Filed: 05/18/24 22:38> Clinical Impression: Strain of left hip Disposition: HOME SELF-CARE Condition: Stable Instructions (If sedation given, give patient instructions): Hip Sprain (ED) Additional Instructions: Take apply lidocaine patches as needed for left hip pain. Follow-up with PCP as discussed for further evaluation if symptoms persist. Please return to the Emergency Department if symptoms worsen or any other concerns. Prescriptions: Lidocaine 5% Patch [Lidoderm 5% Patch] 1 patch TOPICAL DAILY 7 Days #7 patch Referrals: Zeinab Bowling DO [Primary Care Provider] - 1-2 days
[2024-05-18 19:31] VITALS: BP 174/87; PULSE 84; RESP 18; TEMP 97.9
--- NOTE | 2024-05-18 20:07 | XR ---
EXAMINATION TYPE: XR Hip LT and AP Pelvis DATE OF EXAM: 05/18/2024 COMPARISON: None HISTORY: Pain TECHNIQUE: AP pelvis with 2 views left hip FINDINGS: Femoral head articulates with the acetabulum. No displaced fracture evident. Joint spaces p reserved. Pelvis appears intact. IMPRESSION: 1. No acute osseous abnormality left hip. Follow-up can be performed as clinically indicated. [facility], Workstation: [facility], 05/18/2024 8:05 PM
[2024-05-18] MEDS: ACETAMINOPHEN TAB 325 MG TAB PO STA (21:15)
--- NOTE | 2024-05-18 21:58 | CT ---
EXAMINATION TYPE: CT hip LT wo con DATE OF EXAM: 05/18/2024 COMPARISON: 05/18/2024 x-ray HISTORY: Left hip pain. CT DLP: 780.8 mGycm Automated exposure control for dose reduction was used. Contrast: None Technique: Axial images 3 mm thick sections. Reconstructed images in the coronal and sagittal planes. FINDINGS: Femoral head articulates with the acetabulum. Mild joint space narrowing is present. No acute fractur es are evident. Note is made of degenerative disc changes within the lower lumbar spine. Some sacroiliac joint degene rative changes are present on the left. IMPRESSION: 1. NO ACUTE OSSEOUS ABNORMALITY RADIOGRAPHICALLY APPARENT. [facility], Workstation: [facility], 05/18/2024 9:56 PM
[2024-05-18] MEDS: HYDROcodone/APAP 5-325MG 1 EACH TAB PO STA (22:38)
== END 2024-05-18 22:52 | disposition home or self-care (01) ==
LOC: EC 18:14
CPT/HCPCS: 73502; 99284

== ENCOUNTER → 2024-06-18 | Outpatient (CLI) | payer MEDICARE ==
--- NOTE | 2024-06-18 12:06 | XR ---
EXAMINATION TYPE: XR chest 2V DATE OF EXAM: 06/18/2024 CLINICAL HISTORY: [id number] CA,COPD TECHNIQUE: Frontal and lateral views of the chest are obtained. COMPARISON: 07/10/2016 FINDINGS: There is no focal air space opacity, pleural effusion, or pneumothorax seen. The cardiac silhouette size is within normal limits. The osseous structures are intact. IMPRESSION: No acute cardiopulmonary process. [facility], , 06/18/2024 12:04 PM
== END | disposition home or self-care (01) ==
LOC: RADXRYALE 11:38
PROVIDERS: ATTEND Internal Medicine Sleep Medicine
DX: J44.9 Chronic obstructive pulmonary disease, unspecified (principal); C34.90 Malignant neoplasm of unspecified part of unspecified bronchus or lung
CPT/HCPCS: 71046

== ENCOUNTER → 2024-12-05 | Outpatient (CLI) | payer MEDICARE ==
--- NOTE | 2024-12-05 13:04 | MM ---
Reason for Exam: Screening (asymptomatic). Last mammogram was performed 1 year(s) and 1 month(s) ago. Patient History: Menarche at age 11. First Full-Term at age 23. Postmenopausal. Breast cancer, left, age 53. Previous chemotherapy at age 53. Hormonal Contraceptives for 2 years from age 20 until age 22. 1997, Mastectomy on the Left side. Cyst Aspiration on the Left side. 06/04/2011, Benign Core Biopsy on the right side. 05/01/1998, Malignant Excisional Biopsy on the left side. Chemotherapy. Maternal cousin had breast cancer. Maternal cousin had breast cancer. Maternal aunt had breast cancer. Maternal aunt had breast cancer. Prior Study Comparison: 08/13/2019 Right Diagnostic Mammogram, [facility]. 11/25/2022 Right MG 3D scr xavier unilateral w/cad., [facility]. 11/28/2023 Right MG 3D scr xavier unilateral w/cad., [facility]. Tissue Density: Right: The breasts are heterogeneously dense, which may obscure small masses. Findings: Analyzed By CAD. Right breast biopsy clip. Right breast: There is no suspicious group of microcalcifications or new suspicious mass. Benign-appearing calcifications right breast. Overall Assessment: Benign, BI-RAD 2 Management: Screening Mammogram of both breasts in [address] [facility] will attempt to contact patient to return for supplemental views and ultrasound if indicated. Patient should continue monthly self-breast exams. A clinical breast exam by your physician is recommended on an annual basis. This exam should not preclude additional follow-up of suspicious palpable abnormalities. Note on Taylor scores and lifetime risk: 1. A Taylor score greater than 3% is considered moderate risk. If this is the case, consider specialist referral to assess eligibility for a risk reducing agent. 2. If overall lifetime risk for the development of breast cancer is 20% or higher, the patient may qualify for future screening with alternating mammogram and breast MRI. [facility], , 12/05/2024 1:01 PM. Electronically signed and approved by: Salvador Balderrama DO
== END | disposition home or self-care (01) ==
LOC: RADMAMWWP 12:40
PROVIDERS: ATTEND Family Medicine
DX: Z12.31 Encounter for screening mammogram for malignant neoplasm of breast (principal); R92.333 Mammographic heterogeneous density, bilateral breasts; Z78.0 Asymptomatic menopausal state; Z80.3 Family history of malignant neoplasm of breast; Z85.3 Personal history of malignant neoplasm of breast
CPT/HCPCS: 77067